=== PATIENT | female | born 1985 | race Hispanic/Latino ===

== ENCOUNTER 2024-02-12 12:31 | Emergency (ER) | payer MEDICAID, OTHER ==
[~2024-02-12] VITALS: Ht 149.9 cm; Wt 64.0 kg
[2024-02-12] MEDS ORDERED: CLIN-141 PO (14:28)
[2024-02-12] MEDS ORDERED: IBUP-2077 PO (14:28)
[2024-02-12 14:33] VITALS: BP 121/75; PULSE 65; RESP 17; O2SAT 98
== END 2024-02-12 14:40 | disposition home or self-care (01) ==
LOC: EDH 12:31
DX: N61.0 Mastitis without abscess (principal)
CPT/HCPCS: 76642

== ENCOUNTER → 2024-02-28 | Outpatient (CLI) | payer OTHER ==
[~2024-02-28] MED LIST: CLIN-141 PO; IBUP-2077 PO
== END | disposition home or self-care (01) ==
LOC: RAH 13:41
PROVIDERS: ATTEND Obstetrics & Gynecology
DX: R92.0 Mammographic microcalcification found on diagnostic imaging of breast (principal); R92.30 Dense breasts, unspecified; N64.89 Other specified disorders of breast
CPT/HCPCS: 77066

== ENCOUNTER 2024-03-04 21:02 | Emergency (ER) | payer OTHER ==
[~2024-03-04] VITALS: Ht 149.9 cm; Wt 64.0 kg
[2024-03-04] MEDS ORDERED: ACET-2079 PO (21:23)
[2024-03-04] MEDS ORDERED: ONDA-243 PO (21:28)
[2024-03-04 21:44] VITALS: BP 128/79; PULSE 99; RESP 18; O2SAT 98
[2024-03-04] MEDS: ACETAMINOPHEN WITH CODEINE 1 TAB TAB PO ONE (22:00)
[2024-03-04] MEDS: ONDANSETRON ODT 4MG TAB SL ONE (22:02)
== END 2024-03-04 22:30 | disposition home or self-care (01) ==
LOC: EDH 21:02
DX: N64.4 Mastodynia (principal); Z98.890 Other specified postprocedural states

== ENCOUNTER → 2024-03-27 | Outpatient (CLI) | payer OTHER ==
[~2024-03-27] MED LIST changes: +ACET-2079 PO; +GADOTERATE MEGLUMINE 10 MMOL/20 ML VIAL IV ONE; +ONDA-243 PO
== END | disposition home or self-care (01) ==
LOC: RAH 09:58
PROVIDERS: ATTEND Obstetrics & Gynecology
DX: N63.11 Unspecified lump in the right breast, upper outer quadrant (principal); R92.1 Mammographic calcification found on diagnostic imaging of breast
CPT/HCPCS: 77049; A9575

== ENCOUNTER → 2024-04-07 | Outpatient (CLI) | payer OTHER ==
[~2024-04-07] MED LIST changes: -GADOTERATE MEGLUMINE 10 MMOL/20 ML VIAL IV ONE; +IOHEXOL-350 75 ML VIAL IV ONE
== END | disposition home or self-care (01) ==
LOC: RAH 13:13
PROVIDERS: ATTEND Internal Medicine
DX: N63.11 Unspecified lump in the right breast, upper outer quadrant (principal); M47.815 Spondylosis without myelopathy or radiculopathy, thoracolumbar region; K76.89 Other specified diseases of liver; R92.30 Dense breasts, unspecified
CPT/HCPCS: 71270; Q9967